=== PATIENT | male | born 1980 | race Caucasian/White ===

== ENCOUNTER 2017-02-22 00:17 | Emergency (ER) | payer OTHER ==
--- NOTE | 2017-02-22 02:45 | ED NURSING NOTES ---
Clinical Report - Nurses [facility] [address] [place] [address] 02/22/2017 0:18 Patient: ELLE SIDHU TRIAGE Triage time 00:Feb 22 2017. Acuity: LEVEL 4. Chief Complaint: CRUSH INJURY. 00:31 02/22/17. SEPSIS SCREEN: Sepsis Screen. Negative (no infection suspected/documented). TAURUS COMA SCORE: [place] Coma Scale: 15- eyes open spontaneously (4); best verbal response- oriented x 4 (5); best motor response- obeys commands (6). --00:35 Mery Chong R.N. 00:31 02/22/17. BP: 142/94. HR: 86. RR: 18. O2 saturation: 98%. Temp: 97.9 F. Pain level now 9/10. --00:35 Mery Chong R.N. Weight: 99.7 kg. Height/Length: 72 inches. BMI: 29.8. --00:31 Mery Chong R.N. Medications INHALER . --00:33 Mery Chong R.N. Medication/allergy information source: the patient. --00:35 Mery Chong R.N. Allergies No Known Drug Allergy. --00:33 Mery Chong R.N. History Arrived by private vehicle. Historian: patient. Location of injuries: tip of right index finger, tip of right middle finger and right dorsal foot. This occurred just prior to arrival. ( states moving a heavy chest and fingers were caught in the lid. also injured dorsal right foot during the incident but not sure how. some bleeding around nail beds observed. right foot has swelling and abrasion). Treatment TRIM CREW SUPERVISOR: None. PAST MEDICAL HX: Tetanus status: up-to-date. SOCIAL HX: Heavy tobacco smoker (cigarette)- 1-2 packs per day. Occasional alcohol use. No drug use. No infectious disease exposure. ABUSE ASSESSMENT: No report of abuse. SELF HARM ASSESSMENT: A self harm assessment was performed. The patient answered "no" to the question "Have you recently felt down, depressed, or hopeless?", "Have you noticed less interest or pleasure in doing things?", "Do you have thoughts of harming or killing yourself?", "Are you here because you tried to hurt yourself?", "Have you ever tried to hurt yourself before today?", "Have you recently had thoughts about harming or killing others?" and "Do you have any dangerous items in your possession?". --00:35 Mery Chong R.N. PROBLEMS: Laceration. Tetanus Status. --00:33 Mery Chong R.N. ADDITIONAL SURGERIES: Finger repair. Tonsillectomy. --00:33 Mery Chong R.N. Interventions ID band on patient. --00:35 Mery Chong R.N. PHYSICAL ASSESSMENT 00:41 02/22/17. To room via wheelchair. GENERAL / NEURO / PSYCH: Alert. Oriented X 4. Appears in no acute distress. HEENT: Pupils equal, round and reactive to light. RESPIRATORY: Breath sounds within normal limits. CVS: Pulses within normal limits. GI / : Abdomen soft and nontender. EXTREMITIES: Extremities exhibit normal ROM. Neuro-vascular status intact to the extremity. Right hand: tenderness, swelling and erythema (dried blood around nails of right index and middle fingers). Right foot: tenderness, swelling, erythema and small abrasion of the dorsal aspect of the foot. Limited weight bearing secondary to pain. SKIN: Skin intact. Skin is warm and dry. --00:41 Mery Chong R.N. NURSING PROGRESS NOTES 00:35 02/22/17. Cold pack applied to the right hand and right foot. Two patient identifiers checked. Bed placed in lowest position. Brakes of bed on. Patient ready for evaluation. --00:40 Mery Chong R.N. 01:23 02/22/17. The patient is calm and resting quietly. Patient waiting for evaluation. --01:23 Mery Chong R.N. 02:17 02/22/17. ( Xrays completed via portable in room). --02:17 Mery Chong R.N. 02:23 02/22/17. Patient waiting for radiology results. --02:23 Mery Chong R.N. 02:43 02/22/2017 TDAP IM 0.5 mL given. (Lot#: [id number], expiration date: 08/24/2018, In Flight Refueling Craftsman: sanofi pasteur). Given in the right deltoid. Allergies verified and confirmed 5 rights. Vaccine information statement provided to the patient. --02:45 Mery Chong R.N. 02:46 02/22/17. Wound cleansed with Hibiclens (SOAKING FOR 10 MINUTES). --02:46 Mery Chong R.N. DISPOSITION / DISCHARGE Departure time: 03:07. Condition at departure: unchanged. ( Pt was still having some pain in the hand, but was able to move the fingers, full sensation with no tingling or numbness.). No learning barriers present. Discharge instructions provided and reviewed with the patient. Reviewed medication(s) side effects, precautions, dosing and course information. Prescription(s) given to the patient (ultram). Activity restrictions (light lifting) reviewed. Work note given. Patient verbalized understanding. Written instructions provided in Chinese. The patient was discharged by the physician. He was discharged home and unaccompanied at time of discharge. He left the Emergency Department ambulatory and via private vehicle. Patient driving. TAURUS COMA SCORE: [place] Coma Scale: 15- eyes open spontaneously (4); best verbal response- oriented x 4 (5); best motor response- obeys commands (6). --03:07 Prieto Huang R.N. 03:08 02/22/17. BP: 138/91. HR: 81. RR: 18. O2 saturation: 99%. Pain level now 01/24. --03:08 Prieto Huang R.N. Locked/Released at 02/22/2017 3:08 by Prieto Huang R.N.
--- NOTE | 2017-02-22 02:45 | ED NURSING NOTES ---
Clinical Report - Nurses [facility] [address] [place] [address] 02/22/2017 0:18 Patient: ELLE SIDHU TRIAGE Triage time 00:Feb 22 2017. Acuity: LEVEL 4. Chief Complaint: CRUSH INJURY. 00:31 02/22/17. SEPSIS SCREEN: Sepsis Screen. Negative (no infection suspected/documented). TAURUS COMA SCORE: [place] Coma Scale: 15- eyes open spontaneously (4); best verbal response- oriented x 4 (5); best motor response- obeys commands (6). --00:35 Mery Chong R.N. 00:31 02/22/17. BP: 142/94. HR: 86. RR: 18. O2 saturation: 98%. Temp: 97.9 F. Pain level now 9/10. --00:35 Mery Chong R.N. Weight: 99.7 kg. Height/Length: 72 inches. BMI: 29.8. --00:31 Mery Chong R.N. Medications INHALER . --00:33 Mery Chong R.N. Medication/allergy information source: the patient. --00:35 Mery Chong R.N. Allergies No Known Drug Allergy. --00:33 Mery Chong R.N. History Arrived by private vehicle. Historian: patient. Location of injuries: tip of right index finger, tip of right middle finger and right dorsal foot. This occurred just prior to arrival. ( states moving a heavy chest and fingers were caught in the lid. also injured dorsal right foot during the incident but not sure how. some bleeding around nail beds observed. right foot has swelling and abrasion). Treatment FOOT DOCTOR: None. PAST MEDICAL HX: Tetanus status: up-to-date. SOCIAL HX: Heavy tobacco smoker (cigarette)- 1-2 packs per day. Occasional alcohol use. No drug use. No infectious disease exposure. ABUSE ASSESSMENT: No report of abuse. SELF HARM ASSESSMENT: A self harm assessment was performed. The patient answered "no" to the question "Have you recently felt down, depressed, or hopeless?", "Have you noticed less interest or pleasure in doing things?", "Do you have thoughts of harming or killing yourself?", "Are you here because you tried to hurt yourself?", "Have you ever tried to hurt yourself before today?", "Have you recently had thoughts about harming or killing others?" and "Do you have any dangerous items in your possession?". --00:35 Mery Chong R.N. PROBLEMS: Laceration. Tetanus Status. --00:33 Mery Chong R.N. ADDITIONAL SURGERIES: Finger repair. Tonsillectomy. --00:33 Mery Chong R.N. Interventions ID band on patient. --00:35 Mery Chong R.N. PHYSICAL ASSESSMENT 00:41 02/22/17. To room via wheelchair. GENERAL / NEURO / PSYCH: Alert. Oriented X 4. Appears in no acute distress. HEENT: Pupils equal, round and reactive to light. RESPIRATORY: Breath sounds within normal limits. CVS: Pulses within normal limits. GI / : Abdomen soft and nontender. EXTREMITIES: Extremities exhibit normal ROM. Neuro-vascular status intact to the extremity. Right hand: tenderness, swelling and erythema (dried blood around nails of right index and middle fingers). Right foot: tenderness, swelling, erythema and small abrasion of the dorsal aspect of the foot. Limited weight bearing secondary to pain. SKIN: Skin intact. Skin is warm and dry. --00:41 Mery Chong R.N. NURSING PROGRESS NOTES 00:35 02/22/17. Cold pack applied to the right hand and right foot. Two patient identifiers checked. Bed placed in lowest position. Brakes of bed on. Patient ready for evaluation. --00:40 Mery Chong R.N. 01:23 02/22/17. The patient is calm and resting quietly. Patient waiting for evaluation. --01:23 Mery Chong R.N. 02:17 02/22/17. ( Xrays completed via portable in room). --02:17 Mery Chong R.N. 02:23 02/22/17. Patient waiting for radiology results. --02:23 Mery Chong R.N. 02:43 02/22/2017 TDAP IM 0.5 mL given. (Lot#: [id number], expiration date: 08/24/2018, Equipment Mechanic Specialist: sanofi pasteur). Given in the right deltoid. Allergies verified and confirmed 5 rights. Vaccine information statement provided to the patient. --02:45 Mery Chong R.N. 02:46 02/22/17. Wound cleansed with Hibiclens (SOAKING FOR 10 MINUTES). --02:46 Mery Chong R.N. DISPOSITION / DISCHARGE Departure time: 03:07. Condition at departure: unchanged. ( Pt was still having some pain in the hand, but was able to move the fingers, full sensation with no tingling or numbness.). No learning barriers present. Discharge instructions provided and reviewed with the patient. Reviewed medication(s) side effects, precautions, dosing and course information. Prescription(s) given to the patient (ultram). Activity restrictions (light lifting) reviewed. Work note given. Patient verbalized understanding. Written instructions provided in Nigerian. The patient was discharged by the physician. He was discharged home and unaccompanied at time of discharge. He left the Emergency Department ambulatory and via private vehicle. Patient driving. TAURUS COMA SCORE: [place] Coma Scale: 15- eyes open spontaneously (4); best verbal response- oriented x 4 (5); best motor response- obeys commands (6). --03:07 Prieto Huang R.N. 03:08 02/22/17. BP: 138/91. HR: 81. RR: 18. O2 saturation: 99%. Pain level now 01/24. --03:08 Prieto Huang R.N. Locked/Released at 02/22/2017 3:08 by Prieto Huang R.N.
--- NOTE | 2017-02-22 02:45 | ED ORDER SUMMARY ---
..... Patient: ELLE SIDHU OrderSheet [facility] VisitID: [id number] [address] [place] [address] 37y, M Registration Date/Time: 02/22/2017 ORDER SHEET Weight: 99.7 kg Allergies: No Known Drug Allergy GENERAL ORDERS: Finger Right (right index and middle finger) (er room 13) Urgent (02:02 02/22/2017 EInderpetrona R.N. verbal order read back to Carlos MITCHELL) (Ack 2:05 Maru) (2:18 RFay) Foot 3V Right Urgent (02:03 02/22/2017 EIndmisha R.N. verbal order read back to Carlos MITCHELL) (Ack 2:05 Maru) (2:18 RFay) MEDICATION ORDERS: Tdap IM 0.5 mL (NOW) (02:38 02/22/2017 Carlos MITCHELL) (2:45 EInderbitzen R.N.) IV FLUIDS: ORDER SHEET NOTES: [Electronically signed by Prieto Huang R.N. (03:08 02/22/2017)] [Electronically signed by Jose Alfredo Haq MD (09:59 02/24/2017)] [Electronically locked/signed by Prieto Huang R.N. (03:08 02/22/2017)]
--- NOTE | 2017-02-22 02:45 | ED CLINICAL REPORT ---
Clinical Report - Physicians/Mid Levels [facility] [address] [place] [address] 02/22/2017 0:18 Patient: ELLE SIDHU Time Seen: 00:38. Arrived- By private vehicle. Historian- patient. HISTORY OF PRESENT ILLNESS Chief Complaint: Injury to the index finger and middle finger. The injury happened just prior to arrival. The patient sustained a crush injury (moving a heavy chest and fingers were caught in the lid). Occurred at home. Patient is experiencing moderate pain. Patient also notes injury to the right lower extremity (foot); (as the event happened where he injured his hand, he somehow injured his foot but he is not sure what the mechanism was. He says he was not wearing shoes.). REVIEW OF SYSTEMS The patient has had new onset of swelling of the right index finger (mild) and right middle finger (mild). He has had new onset of pain-related weakness of the right index finger (mild) and right middle finger (mild). All systems otherwise negative, except as recorded above. PAST HISTORY Tetanus immunization status is unknown. SOCIAL HISTORY Current every day heavy tobacco smoker (cigarette)- 1-2 packs per day. Occasional alcohol use. No drug use. FAMILY HISTORY No significant family medical history. ADDITIONAL NOTES The nursing notes have been reviewed. PHYSICAL EXAM Vital Signs: 02/22/2017 00:31 BP: 142/94. HR: 86. RR: 18. O2 saturation: 98%. Temp: 97.9 F. Have been reviewed. Appearance: Alert. Head: Head atraumatic. Eyes: Pupils equal, round and reactive to light. ENT: Pharynx normal. Neck: Neck supple. CVS: Heart sounds normal. Respiratory: No respiratory distress. Breath sounds normal. Abdomen: No visible injury. Soft and nontender. Bowel sounds normal. No organomegaly. No mass. Back: ROM normal. Skin: Skin warm and dry. Extremities: Tip of right index finger: moderate tenderness and mild swelling (with abrasion). Tip of right middle finger: moderate tenderness and mild swelling. Right foot: mild tenderness and multiple small abrasion. Neuro, Vascular and Tendons: Vascular status intact. Sensation intact. Motor intact. Tendon function intact. Neuro: No motor deficit. No sensory deficit. LABS, X-RAYS, AND EKG X-Rays: Right digit(s) negative. Right foot negative. The X-rays were independently viewed by me. PROGRESS AND PROCEDURES Course of Care: Patient is stable. Patient/family counseled. Old medical records reviewed. Disposition: Discharged. Condition: stable. CLINICAL IMPRESSION Multiple superficial abrasions to the right index finger and right foot. Contusion to the right foot. Crush injury to the right index finger and right middle finger. INSTRUCTIONS Apply ice. Elevate affected areas above chest level. No driving or operating machinery while taking medication. You may walk and bear weight as tolerated. Warnings: COMPLICATIONS: Complications from this condition include: possible infection, possible injury to a nerve, possible injury to a tendon and possible injury to a ligament. Future problems may include infection, loss of function, pain and deformity. INFECTION: Watch for signs of infection (increasing heat and redness, pus-like drainage, swelling, or increased pain). Return or see your doctor if these signs occur. TETANUS: You were given a tetanus shot during your visit. Make a note for future reference. GENERAL WARNINGS: Return or contact your physician immediately if your condition worsens or changes unexpectedly, if not improving as expected, or if other problems arise. Prescription Medications: Ultram 50 mg: take 1-2 orally every 6 hours as needed for pain. Dispense fifteen (15). No refills. Substitution is permissible. Understanding of the discharge instructions verbalized by patient. (Electronically signed by Jose Alfredo Haq MD 02/24/2017 9:59)
--- NOTE | 2017-02-22 02:45 | ED ORDER SUMMARY ---
..... Patient: ELLE SIDHU OrderSheet [facility] VisitID: [id number] [address] [place] [address] 37y, M Registration Date/Time: 02/22/2017 ORDER SHEET Weight: 99.7 kg Allergies: No Known Drug Allergy GENERAL ORDERS: Finger Right (right index and middle finger) (er room 13) Urgent (02:02 02/22/2017 EInderpetrona R.N. verbal order read back to Carlos MITCHELL) (Ack 2:05 Maru) (2:18 RFay) Foot 3V Right Urgent (02:03 02/22/2017 EIndmisha R.N. verbal order read back to Carlos MITCHELL) (Ack 2:05 Maru) (2:18 RFay) MEDICATION ORDERS: Tdap IM 0.5 mL (NOW) (02:38 02/22/2017 Carlos MITCHELL) (2:45 EInderbitzen R.N.) IV FLUIDS: ORDER SHEET NOTES: [Electronically signed by Prieto Huang R.N. (03:08 02/22/2017)] [Electronically signed by Jose Alfredo Haq MD (09:59 02/24/2017)] [Electronically locked/signed by Prieto Huang R.N. (03:08 02/22/2017)]
--- NOTE | 2017-02-22 05:54 | DIAGNOSTIC IMAGING REPORT ---
PROCEDURE: XR FOOT 3 VIEWS - RIGHT INDICATION: TRAUMA/INJURY TECHNIQUE: Three views. COMPARISON: None. FINDINGS: Osseous structures and joint spaces are normal. IMPRESSION: 1. Normal right foot.
--- NOTE | 2017-02-22 05:55 | DIAGNOSTIC IMAGING REPORT ---
PROCEDURE: XR FINGER - RIGHT (second finger). INDICATION: TRAUMA/INJURY TECHNIQUE: Three views. COMPARISON: None. FINDINGS: Osseous structures and joint spaces are normal. IMPRESSION: 1. Normal right second finger.
--- NOTE | 2017-02-24 09:59 | ED MAR SUMMARY ---
..... Medication Administration Record [facility] [address] [place] [address] Patient: ELLE SIDHU Visit ID: [id number] 37y, M Weight: 99.7 kg Height/Length: 72 in BMI: 29.8 ALLERGIES: No Known Drug Allergy Given 02:43 02/22/2017 Mery Chong R.N. Medication Administered: TDAP [IM], Dose: 0.5 mL IM. Medication Ordered: Tdap IM 0.5 mL (NOW).
--- NOTE | 2017-02-24 09:59 | ED MED RECONCILIATION SUMMARY ---
Patient: ELLE SIDHU Medication Reconciliation Report [facility] VisitID: [id number] [address] [place] [address] 37y, M Registration Date/Time: 02/22/2017 Weight: 99.7 kg Height/Length: 72 in. BMI: 29.8 ALLERGIES: No Known Drug Allergy The patient's Home Medications are listed below: THE FOLLOWING MEDICATIONS NEED TO BE RECONCILED: INHALER The source(s) of the original Home Medication information: patient The following Medications were given to the patient in the Emergency Department: TDAP [IM] IM 0.5 mL, administered: 02/22/2017 2:43:00 AM The following Medications were prescribed to the patient: Ultram 50 mg: take 1-2 orally every 6 hours as needed for pain. Dispense fifteen (15). No refills. Substitution is permissible. -- Jose Alfredo Haq MD
--- NOTE | 2017-02-24 09:59 | ED MAR SUMMARY ---
..... Medication Administration Record [facility] [address] [place] [address] Patient: ELLE SIDHU Visit ID: [id number] 37y, M Weight: 99.7 kg Height/Length: 72 in BMI: 29.8 ALLERGIES: No Known Drug Allergy Given 02:43 02/22/2017 Mery Chong R.N. Medication Administered: TDAP [IM], Dose: 0.5 mL IM. Medication Ordered: Tdap IM 0.5 mL (NOW).
--- NOTE | 2017-02-24 09:59 | ED DISCHARGE INSTRUCTIONS ---
Patient: ELLE SIDHU General Instructions [facility] VisitID: [id number] [place] [address] 37y, M Registration Date/Time: 02/22/2017 Multiple superficial abrasions to the right index finger and right foot. Contusion to the right foot. Crush injury to the right index finger and right middle finger. INSTRUCTIONS Apply ice. Elevate affected areas above chest level. No driving or operating machinery while taking medication. You may walk and bear weight as tolerated. Warnings: COMPLICATIONS: Complications from this condition include: possible infection, possible injury to a nerve, possible injury to a tendon and possible injury to a ligament. Future problems may include infection, loss of function, pain and deformity. INFECTION: Watch for signs of infection (increasing heat and redness, pus-like drainage, swelling, or increased pain). Return or see your doctor if these signs occur. TETANUS: You were given a tetanus shot during your visit. Make a note for future reference. GENERAL WARNINGS: Return or contact your physician immediately if your condition worsens or changes unexpectedly, if not improving as expected, or if other problems arise. Prescription Medications: Ultram 50 mg: take 1-2 orally every 6 hours as needed for pain. Dispense fifteen (15). No refills. Substitution is permissible. Understanding of the discharge instructions verbalized by patient. ADDITIONAL INFORMATION Contusion: Foot You have a CONTUSION of your foot. This causes local pain, swelling and sometimes bruising. There are no broken bones. This injury may take from a few days to a few weeks to heal. Home Care: 1) Keep your LEG elevated to reduce pain and swelling. This is very important during the first 48 hours. If walking causes pain, stay off the injured leg until you can walk without pain. 2) If CRUTCHES have been advised, do not bear full weight on the injured leg until you can do so without pain. You may return to sports when you are able to hop and run on the injured leg without pain. 3) Make an ice pack (ice cubes in a plastic bag, wrapped in a towel) and apply for 20 minutes every 1-2 hours the first day. Continue this 3-4 times a day until the swelling goes down. 4) You may use acetaminophen (Tylenol) or ibuprofen (Motrin, Advil) to control pain, unless another pain medicine was prescribed. [ NOTE : If you have chronic liver or kidney disease or ever had a stomach ulcer or GI bleeding, talk with your doctor before using these medicines.] Follow Up with your doctor or this facility if you are not starting to improve within the next THREE days. [NOTE: If X-rays were taken, they will be reviewed by a radiologist. You will be notified of any new findings that may affect your care.] Get Prompt Medical Attention if any of the following occur: -- Pain or swelling increases -- Toes become cold, blue, numb or tingly -- Redness, warmth or drainage from the skin Crush Injury: Hand [No Fx] You have a CRUSH INJURY of your HAND. This causes local pain, swelling and sometimes bruising. There are no broken bones. This injury may take from a few days to a few weeks to heal. If the FINGERNAIL has been severely injured, it may fall off in 1-2 weeks. A new one will usually start to grow back within a month. Home Care: Keep your hand elevated to reduce pain and swelling. When sitting or lying down elevate your arm above the level of your heart. You can do this by placing your arm on a pillow that rests on your chest or on a pillow at your side. This is most important during the first 48 hours after injury. Apply an ice pack (ice cubes in a plastic bag, wrapped in a towel) over the injured area for 20 minutes every 1-2 hours the first day for pain relief. Continue this 3-4 times a day until the pain and swelling goes away. You may use acetaminophen (Tylenol) or ibuprofen (Motrin, Advil) to control pain, unless another pain medicine was prescribed. [ NOTE : If you have chronic liver or kidney disease or ever had a stomach ulcer or GI bleeding, talk with your doctor before using these medicines.] Keep the splint/cast dry at all times. Bathe with your splint/cast well out of the water, protected with a large plastic bag, rubber-banded at the top end. If a fiberglass cast or splint gets wet, you can dry it with a hair-dryer. Follow Up with your doctor as advised if you are not starting to improve within the next THREE days. [NOTE: If X-rays were taken, they will be reviewed by a radiologist. You will be notified of any new findings that may affect your care.] Get Prompt Medical Attention if any of the following occur: The plaster cast or splint becomes wet or soft The fiberglass cast or splint remains wet for more than 24 hours Increased tightness or pain under the cast or splint Fingers become swollen, cold, blue, numb or tingly Redness, warmth, swelling, drainage from the wound, or foul odor from a cast or splint Fever of 100.4F(38C) or higher, or as directed by your healthcare provider Diphtheria Toxoid Adsorbed, Pertussis Vaccine, Acellular (Adsorbed), Tetanus Toxoid, Adsorbed Suspension for injection What is this medicine? DIPHTHERIA and TETANUS TOXOIDS; PERTUSSIS VACCINE (dif THEER ee uh and TET n us TOK soids; per CAMI moore SEEN) is used to prevent diphtheria, tetanus, and pertussis infections. How should I use this medicine? This vaccine is for injection into a muscle. It is given by a health memory care program director. A copy of Vaccine Information Statements will be given before each vaccination. Read this sheet carefully each time. The sheet may change frequently. Talk to your commercial front load driver regarding the use of this vaccine in children. While the DTP vaccine may be given to children ages 6 weeks to 7 years and the Tdap vaccine may be given to children at least 10 years old, precautions do apply. What side effects may I notice from receiving this medicine? Side effects that you should report to your doctor or health memory care program director as soon as possible: allergic reactions like skin rash, itching or hives, swelling of the face, lips, or tongue breathing problems fever of 103 degrees F or more flu-like symptoms inconsolable crying infection pain, tingling, numbness in the hands or feet seizures swelling of arm or leg that was injected unusually weak or tired Side effects that usually do not require immediate medical attention (report these side effects to your doctor or health memory care program director if they continue or are bothersome): fussy, irritable loss of appetite fever of 102 degrees F or less pain, tenderness, redness, swelling, or a 'knot' at site where injected vomiting What may interact with this medicine? immune globulin medicines that suppress your immune function like adalimumab, anakinra, infliximab medicines to treat cancer medicines that treat or prevent blood clots like warfarin, enoxaparin, and dalteparin steroid medicines like prednisone or cortisone What if I miss a dose? It is important not to miss your dose. Call your doctor or health memory care program director if you are unable to keep an appointment. Where should I keep my medicine? This drug is given in a hospital or clinic and will not be stored at home. What should I tell my health care provider before I take this medicine? They need to know if you have any of these conditions: blood disorders like hemophilia fever or infection immune system problems neurologic disease seizures an unusual or allergic reaction to vaccines, thimerosal, latex, other medicines, foods, dyes, or preservatives or trying to get breast-feeding What should I watch for while using this medicine? See your health care provider for all shots of this vaccine as directed. To have protection from infection, you must have 3 shots of this vaccine plus boosters as needed. Tell your doctor right away if you have any serious or unusual side effects after getting this vaccine. Tramadol Hydrochloride Oral tablet What is this medicine? TRAMADOL (TRA ma dole) is a pain reliever. It is used to treat moderate to severe pain in adults. How should I use this medicine? Take this medicine by mouth with a full glass of water. Follow the directions on the prescription label. If the medicine upsets your stomach, take it with food or milk. Do not take more medicine than you are told to take. Talk to your commercial front load driver regarding the use of this medicine in children. Special care may be needed. What side effects may I notice from receiving this medicine? Side effects that you should report to your doctor or health memory care program director as soon as possible: allergic reactions like skin rash, itching or hives, swelling of the face, lips, or tongue breathing difficulties, wheezing confusion itching light headedness or fainting spells redness, blistering, peeling or loosening of the skin, including inside the mouth seizures Side effects that usually do not require medical attention (report to your doctor or health memory care program director if they continue or are bothersome): constipation dizziness drowsiness headache nausea, vomiting What may interact with this medicine? Do not take this medicine with any of the following medications: MAOIs like Carbex, Eldepryl, Marplan, Nardil, and Parnate This medicine may also interact with the following medications: alcohol or medicines that contain alcohol antihistamines benzodiazepines bupropion carbamazepine or oxcarbazepine clozapine cyclobenzaprine digoxin furazolidone linezolid medicines for depression, anxiety, or psychotic disturbances medicines for migraine headache like almotriptan, eletriptan, frovatriptan, naratriptan, rizatriptan, sumatriptan, zolmitriptan medicines for pain like pentazocine, buprenorphine, butorphanol, meperidine, nalbuphine, and propoxyphene medicines for sleep muscle relaxants naltrexone phenobarbital phenothiazines like perphenazine, thioridazine, chlorpromazine, mesoridazine, fluphenazine, prochlorperazine, promazine, and trifluoperazine procarbazine warfarin What if I miss a dose? If you miss a dose, take it as soon as you can. If it is almost time for your next dose, take only that dose. Do not take double or extra doses. Where should I keep my medicine? Keep out of the reach of children. Store at room temperature between 15 and 30 degrees C (59 and 86 degrees F). Keep container tightly closed. Throw away any unused medicine after the expiration date. What should I tell my health care provider before I take this medicine? They need to know if you have any of these conditions: brain tumor depression drug abuse or addiction head injury if you frequently drink alcohol containing drinks kidney disease or trouble passing urine liver disease lung disease, asthma, or breathing problems seizures or epilepsy suicidal thoughts, plans, or attempt; a previous suicide attempt by you or a family member an unusual or allergic reaction to tramadol, codeine, other medicines, foods, dyes, or preservatives or trying to get breast-feeding What should I watch for while using this medicine? Tell your doctor or health memory care program director if your pain does not go away, if it gets worse, or if you have new or a different type of pain. You may develop tolerance to the medicine. Tolerance means that you will need a higher dose of the medicine for pain relief. Tolerance is normal and is expected if you take this medicine for a long time. Do not suddenly stop taking your medicine because you may develop a severe reaction. Your body becomes used to the medicine. This does NOT mean you are addicted. Addiction is a behavior related to getting and using a drug for a non-medical reason. If you have pain, you have a medical reason to take pain medicine. Your doctor will tell you how much medicine to take. If your doctor wants you to stop the medicine, the dose will be slowly lowered over time to avoid any side effects. You may get drowsy or dizzy. Do not drive, use machinery, or do anything that needs mental alertness until you know how this medicine affects you. Do not stand or sit up quickly, especially if you are an older patient. This reduces the risk of dizzy or fainting spells. Alcohol can increase or decrease the effects of this medicine. Avoid alcoholic drinks. You may have constipation. Try to have a bowel movement at least every 2 to 3 days. If you do not have a bowel movement for 3 days, call your doctor or health memory care program director. Your mouth may get dry. Chewing sugarless gum or sucking hard candy, and drinking plenty of water may help. Contact your doctor if the problem does not go away or is severe. You have been given the following additional information: Contusion, Foot Crush Injury, Hand/Finger Diphtheria Toxoid Adsorbed, Pertussis Vaccine, Acellular (Adsorbed), Tetanus Toxoid, Adsorbed Suspension for injection Tramadol Hydrochloride Oral tablet No driving or operating machinery while taking medication. You may walk and bear weight as tolerated. (Electronically signed by Jose Alfredo Haq MD 02/24/2017 9:59)
--- NOTE | 2017-02-24 09:59 | ED MED RECONCILIATION SUMMARY ---
Patient: ELLE SIDHU Medication Reconciliation Report [facility] VisitID: [id number] [place] [address] 37y, M Registration Date/Time: 02/22/2017 Weight: 99.7 kg Height/Length: 72 in. BMI: 29.8 ALLERGIES: No Known Drug Allergy The patient's Home Medications are listed below: THE FOLLOWING MEDICATIONS NEED TO BE RECONCILED: INHALER The source(s) of the original Home Medication information: patient The following Medications were given to the patient in the Emergency Department: TDAP [IM] IM 0.5 mL, administered: 02/22/2017 2:43:00 AM The following Medications were prescribed to the patient: Ultram 50 mg: take 1-2 orally every 6 hours as needed for pain. Dispense fifteen (15). No refills. Substitution is permissible. -- Jose Alfredo Haq MD
== END 2017-02-22 03:00 | disposition home or self-care (01) ==
LOC: ED SRH 00:17
DX: S60.410A Abrasion of right index finger, initial encounter (principal); S90.31XA Contusion of right foot, initial encounter; S67.190A Crushing injury of right index finger, initial encounter; S67.192A Crushing injury of right middle finger, initial encounter; X50.0XXA Overexertion from strenuous movement or load, initial encounter; W23.1XXA Caught, crushed, jammed, or pinched between stationary objects, initial encounter; Y92.009 Unspecified place in unspecified non-institutional (private) residence as the place of occurrence of the external cause; F17.210 Nicotine dependence, cigarettes, uncomplicated